=== PATIENT | female | born 1995 | race Caucasian/White ===

== ENCOUNTER → 2020-08-12 | Outpatient (CLI) | payer OTHER | LOC: COL.RAD 07:50 | DX: R10.9 Unspecified abdominal pain (principal); R63.4 Abnormal weight loss; R11.2 Nausea with vomiting, unspecified | CPT/HCPCS: A9541 ==

== ENCOUNTER → 2020-10-09 | Outpatient (CLI) | payer OTHER | LOC: COL.RAD 07:41 | DX: S73.101A Unspecified sprain of right hip, initial encounter (principal) | CPT/HCPCS: A9585; Q9967 ==

== ENCOUNTER → 2020-10-15 | Outpatient (CLI) | payer BC | LOC: COL.RAD 12:23 | DX: S73.191A Other sprain of right hip, initial encounter (principal) | CPT/HCPCS: J3301; Q9967 ==

== ENCOUNTER 2021-05-29 14:54 | Emergency (ER) | payer BC ==
[~2021-05-29] VITALS: Ht 170.2 cm; Wt 55.0 kg
[2021-05-29 18:26] LABS: BASO % 0.6 % (0.0-2.0); EOS # 0.1 (0.0-0.7); EOS % 1.1 % (0-4.0); GRAN % 62.4 % (42.2-75.2); HEMATOCRIT 48.3 % (37.0-47.0); HEMOGLOBIN 15.8 g/dl (12.5-16.0); LYMPH # 1.9 (1.2-3.4); MEAN CELL VOLUME 98 fl (80.0-100.0); MEAN CORPUSCULAR HEMOGLOBIN 32 pg (27.0-31.0); MEAN CORPUSCULAR HGB CONC 33 g/dl (33.0-37.0); MEAN PLATELET VOLUME 9.8 fl (7.4-10.4); MONO # 0.4 (0.1-0.6); MONO % 5.6 % (1.7-9.3); PLATELET COUNT 258 K/mm3 (130-400); RED BLOOD COUNT 4.91 M/mm3 (4.10-5.30); REDCELL DISTRIBUTION WIDTH-CV 12.3 % (11.5-14.5)
[2021-05-29 18:37] LABS: ALBUMIN 5.4 gm/dL (3.5-5.0); BILIRUBIN,TOTAL 0.2 mg/dL (0.0-1.0); CALCIUM 10.3 mg/dL (8.4-10.2); CREATININE, serum 0.65 (0.52-1.25); POTASSIUM 4.4 mmol/L (3.4-5.0); TOTAL PROTEIN 8.9 gm/dL (6.4-8.2)
[2021-05-29 18:59] LABS: MAGNESIUM 2.2 mg/dL (1.6-2.3); PHOSPHOROUS 4.7 mg/dL (2.5-4.5)
[2021-05-29 19:30] VITALS: BP 102/61; PULSE 82; TEMP 98.3
== END 2021-05-29 19:28 | disposition home or self-care (01) ==
LOC: COL.ER 14:54
PROVIDERS: Student in an Organized Health Care Education/Training Program
DX: E16.2 Hypoglycemia, unspecified (principal)